=== PATIENT | female | born 1985 | race Caucasian/White ===

== ENCOUNTER 2018-01-02 13:24 | Day surgery (SDC) | payer OTHER ==
[~2018-01-02] VITALS: Ht 160 cm; Wt 55.1 kg
[~2018-01-02 13:24] MED LIST: ONDANSETRON HCL 4 MG/2 ML VIAL IV ONE; PRENCAP6 PO; PROP80CA PO; PROPOFOL 200 MG/20 ML AMP IV ONE; TOPI100 PO
[2018-01-02 14:00] VITALS: BP 148/96; PULSE 88; RESP 16; O2SAT 100
[2018-01-02] MEDS ORDERED: LORazepam 1 MG TAB SL SCH (14:45)
[2018-01-02] MEDS ORDERED: SODIUM CHLORID 0.9% 500 ML INJ 500 ML IV SCH (14:45)
[2018-01-02] MEDS ORDERED: METOPROLOL TARTRATE 25 MG TAB PO PRN (14:45)
[2018-01-02] MEDS ORDERED: SODIUM CHLORID 0.9% 500 ML IV PRN (14:45)
[2018-01-02] MEDS ORDERED: LACTATED RINGER'S 1000 ML IV PRN (14:45)
[2018-01-02] MEDS ORDERED: POVIDONE IODINE 5% (ANTISEPSIS KIT) 4 APPLICATIONS EACH NARE PRN (14:45)
[2018-01-02] MEDS ORDERED: CHLORHEXIDINE GLUCONATE 2 % 1 PACK (2 CLOTHS) TOPICAL PRN (14:45)
[2018-01-02 15:26] LABS: AUTOMATED NEUTROPHIL # 4.8 TH/MM3 (1.8-7.7); BASOPHIL # 0.2 TH/MM3 (0-0.2); BASOPHIL % 2.1 % (0.0-2.0); EOSINOPHIL % 9.4 % (0.0-4.0); HEMATOCRIT 37.9 % (35.0-46.0); HEMOGLOBIN 13.1 GM/DL (11.6-15.3); LYMPH % 32.6 % (9.0-44.0); LYMPHOCYTE # 3.3 TH/MM3 (1.0-4.8); MEAN CELL VOLUME 90.3 FL (80.0-100.0); MEAN CORPUSCULAR HEMOGLOBIN 31.3 PG (27.0-34.0); MEAN CORPUSCULAR HGB CONC 34.6 % (32.0-36.0); MEAN PLATELET VOLUME 10.3 FL (7.0-11.0); MONO % 8.5 % (0.0-8.0); MONOCYTE # 0.9 TH/MM3 (0-0.9); NEUT % 47.4 % (16.0-70.0); PLATELET COUNT 226 TH/MM3 (150-450); RED CELL DISTRIBUTION WIDTH 12.3 % (11.6-17.2); WHITE BLOOD COUNT 10.1 TH/MM3 (4.0-11.0)
[2018-01-02 15:37] LABS: INTERNATIONAL NORMALIZED RATIO 1.1 RATIO; PROTHROMBIN TIME - PATIENT 11.6 SEC (9.8-11.6)
[2018-01-02 15:51] LABS: BICARBONATE 22.3 MEQ/L (21.0-32.0); BLOOD UREA NITROGEN 20 MG/DL (7-18); CALCIUM 8.7 MG/DL (8.5-10.1); CHLORIDE 111 MEQ/L (98-107); CREATININE 0.75 MG/DL (0.50-1.00); GLOMERULAR FILTRATION RATE 89 ML/MIN (>89); GLUCOSE,RANDOM 75 MG/DL (74-106); SODIUM (NA) 141 MEQ/L (136-145)
[2018-01-02] MEDS ORDERED: MIDAZOLAM HCL 2 MG/2 ML VIAL ONE (16:00)
[2018-01-02] MEDS ORDERED: HEPARIN SODIUM - IV 10,000 UNITS/10 ML VIAL ONE (16:01)
[2018-01-02] MEDS ORDERED: TOPI200 PO (16:12)
[2018-01-02] MEDS ORDERED: PROP20TA3 PO (16:12)
--- NOTE | 2018-01-02 17:03 | CATHPROC ---
[facility] HIS Report Study Information Study Number Admission Scheduled Start Study Start [id number] Jan 02 2018 1:24PM 01/02/2018 Jan 02 2018 2:27PM [facility] Electrophysiology Study Admit Source Facility Department Other [facility] Physician and Clinical Staff Initial Dong [employer] Hand Gisela Peck RN Other Jazmin Holder,RT(R) TECH2 Other Anesthesia, HIDE SPLITTER Recorder Shahzad JACQUES, Christiano Killian,RT(R) Equipment Time Vault Attendant Description Size Mfg Part Number Used/Scraped [id number] 14:30 [employer] PACK, CCL CUSTOM * Used *[id number] 14:30 [employer] PACER [place], LIMB * 2530 *[id number] Used [id number] 14:30 [employer] BLANKET,WARM AIR CCL * Used *[id number] 16:09 [employer] CATHETER, JSN, QUAD FR 5 Used *[id number] 16:09 [employer] CAT[employer], JSN, QUAD FR 5 Used *[id number] 16:09 [employer] CATHE[employer], JSN, QUAD FR 5 Used *[id number] 16:09 [employer] CATHETER, JSN, QUAD FR 5 Used *[id number] 14:30 [employer] ELECTRODE KIT, HIRAL X SURFACE * Used *[id number] 16:10 [employer] SHEATH, EPS, FR5 FAST CATH FR 5 Used *[id number] 16:10 [employer] SHEATH, EPS, FR5 FAST CATH FR 5 Used *[id number] 16:10 [employer] SHEATH, EPS, FR5 FAST CATH FR 5 Used *[id number] 16:10 [employer] SHEATH, EPS, FR6 FAST CATH FR 6 Used *[id number] 16:10 [employer] SHEATH, EPS, FR8 FAST CATH FR 8 Used *[id number] 16:22 [facility] SHEATH, EPS, FR8 FAST CATH FR 8 Used *[id number] [facility] PAD, ELECTROSURGICAL 14:30 * [id number] *[id number] Used SURGICAL GROUNDING (BLUE) Labs Hgb (g/dl) Hct (%) WBC (l/cumm) Platelets (thousands) 11.60-17.00 35.00-51.00 4.00-11.00 150.00-450.00 15.0 37 4.2 226 Glucose (mg/dl) BUN (mg/dl) Creatinine (mg/dl) BUN:Creatinine (1:x) 74.00-106.00 7.00-18.00 0.50-1.30 10.00-20.00 75 20 0.8 25 Na (meq/l) K (meq/l) 136.00-145.00 3.50-5.10 141 3.6 INR (PTT:PT) 0.90-1.10 1.1 CPK-MB (ng/ML) 0.50-3.60 Not Drawn Medication Medication Total Dose (Bolus/Oral) Medication Total Dosage/Unit 1% XYLOCAINE 40 mL Medications (Bolus/Oral) Medication Time Given Dosage/Unit Administered By Reason 1% XYLOCAINE 01/02/2018 4:29:15 PM 20 mL Dong Jackson 20 mL 1% XYLOCAINE given by Dong Jackson in Left Groin via Subcutaneous. 1% XYLOCAINE 01/02/2018 4:32:08 PM 20 mL Dong Jackson 20 mL 1% XYLOCAINE given by Dong Jackson in Right Groin via Subcutaneous. Medication (Drip) Medication Time Given Dosage/Unit Concentration/Unit Diluent (ml) Solution ISUPREL 01/02/2018 4:44:08 PM 2 mcg/min 1 mg 250 NaCl .9 2 mcg/min ISUPREL given in lab by Dong Jackson via Peripheral IV. Pump/Drip Flow = 30 ml/hr using Na Cl .9 with a concentration of 1 mg in 250 ml. Initial Case Assessment Cardiovascular HR NIBP Chest Pain 78 139/88 0 Edema Present Skin color Skin None Normal Warm Dry Neurological State Oriented to time-place- Alert Moves all extremities person Final Case Assessment Cardiovascular HR Rhythm NIBP Chest Pain 92 sr 94/50 0 Edema Present Skin color Skin None Normal Warm Dry Circulatory - Right Pulses Dorsalis Pedis 1 Scale (0,1,2,3,4,d) Circulatory - Left Pulses Dorsalis Pedis 1 Scale (0,1,2,3,4,d) Circulatory - Lower Extremities Color Lower Right Color Lower Left Normal Normal Neurological State Lethargic Moves all extremities Respiration - General Respiration Rate SpO2 (%) O2 (lpm) (B/min) 16 100 6 Chronological Log Time Study Chronological Log 15:52:12 Patient arrived via Bed. 15:52:13 Patient Name, D.O.B, / Armband Verified By R.N. 15:52:15 Consent signed by the physician and the patient and verified by the [facility] staff. 15:52:17 Pre-op and post- op instructions given; patient acknowledges understanding of instructions. 15:52:18 Verbal Stimulation=2 Physical Stimulation=2 Airway=2 Respiration=2 TOTAL=8. (0=absent, 1=li mited, 2=present) 15:52:20 Anesthesia at bedside. Assumes care of patient. Bertram 15:53:46 History and physical on the chart or being dictated. 16:00:10 Patient has been NPO for More than 6Hrs. 16:01:53 Disposable Defibrillator Pads Placed On Patient. 16:05:25 A # 20 IV was noted in the Antecubital (right). Grade = 0 16:05:59 Yakelin Prominences Protected 16:07:50 Patient Warmer Placed on the Table. 16:11:10 Skin Breakdown- none reported 16:11:45 Bilateral groins prepped with 2% chlorhexidine, and draped after a 3 min. waiting time. 16:13:06 A # 20 IV was noted in the Antecubital (left). Grade = 0 16:13:52 Table restraints applied according to hospital policy Assessment: Initial Case, HR=78 BPM, FEZX=522/88 mmhg, Chest Pain=0, Edema=None, Color=Normal, Skin = 16:13:55 Warm, Dry Neurological: State=Alert, Ox3, REYES 16:14:42 MD paged 16:25:13 MD arrived. Time Out. Correct patient, procedure, procedure equipment, site and side verified with physicia n present. Time 16:28:55 concurred by MD, individual staff and HIDE SPLITTER. 16:28:59 Case Start 16:29:15 20 mL 1% XYLOCAINE given by Dong Jackson in Left Groin via Subcutaneous. 16:29:55 Vascular access was obtained in the Fem Vein (left). 16:30:14 Vascular access was obtained in the Fem Vein (left). 16:31:01 Vascular access was obtained in the Fem Vein (left). 16:31:26 A SHEATH, EPS, FR5 FAST CATH FR 5 was advanced into the Fem Vein (left) using the Modified Seldinger technique. 16:31:42 A SHEATH, EPS, FR5 FAST CATH FR 5 was advanced into the Fem Vein (left) using the Modified Seldinger technique. 16:31:51 A SHEATH, EPS, FR5 FAST CATH FR 5 was advanced into the Fem Vein (left) using the Modified Seldinger technique. 16:32:08 20 mL 1% XYLOCAINE given by Dong Jackson in Right Groin via Subcutaneous. 16:32:31 Vascular access was obtained in the Fem Vein (right). 16:32:36 A SHEATH, EPS, FR6 FAST CATH FR 6 was advanced into the Fem Vein (right) using the Modified Seldinger technique. A CATHETER, JSN, QUAD FR 5 was advanced vis Fem Vein (left) and placed in the RVA. Placement wa s visually 16:33:19 confirmed under fluoroscopy. A CATHETER, JSN, QUAD FR 5 was advanced vis Fem Vein (left) and placed in the HIS. Placement wa s visually 16:34:36 confirmed under fluoroscopy. A CATHETER, JSN, QUAD FR 5 was advanced vis Fem Vein (left) and placed in the HRA. Placement wa s visually 16:36:22 confirmed under fluoroscopy. A CATHETER, JSN, QUAD FR 5 was advanced vis Fem Vein (right) and placed in the CS. Placement wa s visually 16:37:24 confirmed under fluoroscopy. 16:38:38 Incremental Atrial Pacing in progress 2 mcg/min ISUPREL given in lab by Dong Jackson via Peripheral IV. Pump/Drip Flow = 30 ml/hr us ing NaCl .9 with a 16:44:08 concentration of 1 mg in 250 ml. 16:49:59 Incremental Atrial Pacing in progress 16:52:19 Isuprel off 16:55:18 EP Procedure was performed. 16:57:06 Catheter(s) removed without difficulty 16:57:22 Sheath(s) left in place, secured, 0.9nskvo connected and will be removed in Holding Area 16:57:43 DOCU called. Spoke to Eli. Aware of venous sheaths need to be pulled. 16:58:27 Bedside Report will be given. 16:58:51 Defibrillator and ground pads removed. Skin intact. Assessment: Final Case, HR=92 BPM, Rhythm=sr, NIBP=94/50 mmhg, Chest Pain=0, Edema=None, Color =Normal, Skin = Warm, Dry Right Pulses: Danielito Ped=1 Left Pulses: Danielito Ped=1 16:59:01 Lower Right Extremities: Color=Normal Lower Left Extremities: Color=Normal Neurological: State=Lethargic, REYES Respiration: Resp=16 B/min, ZaX9=898 %, O2=6 lpm 16:59:36 Sterile dressing applied to site 16:59:49 Reference ECG taken 16:59:51 Cine recording checked. 17:00:02 Case End 17:00:08 Patient moved to stretcher End Study - Contrast Media Used In Study Contrast Total Opened (mL) Total Used (mL) Total Wasted (mL) Unspecified 0 0 0 End Study - Maximum Contrast Load Max Contrast Load (mL) 312.5 End Study - Radiation Exposure Fluoro Time (minutes) 1.7 End Study - Patient Disposition Complications Transferred To Interventional Outcome No Telemetry Bed successful
--- NOTE | 2018-01-03 11:17 | EKG ---
Date Performed: 01/02/2018 Time Performed: 15:08:12 PTAGE: 32 years EKG: Sinus rhythm Normal ECG NO PREVIOUS TRACING DOCTOR: Felix Espinal Interpretating Date/Time 01/03/2018 11:13:45
== END 2018-01-02 19:49 | disposition home or self-care (01) ==
LOC: HDOC 13:24 → HDIC 13:25 → HDOC 19:49
PROVIDERS: ATTEND Internal Medicine Interventional Cardiology
DX: I47.1 Supraventricular tachycardia (principal); I48.91 Unspecified atrial fibrillation; R06.02 Shortness of breath; I34.0 Nonrheumatic mitral (valve) insufficiency
CPT/HCPCS: 80048; 84702; 85025; 85610; 85730; 86850; 86900; 86901; 93005; 93620; 93623; C1730; C1732; J1644; J2250; J2405; J3010; J7040

== ENCOUNTER 2018-02-05 07:26 | Day surgery (SDC) | payer OTHER ==
[~2018-02-05] VITALS: Ht 157.5 cm; Wt 51.0 kg
[2018-02-05] VITALS (11 sets, daily range): BP systolic 105–139; BP diastolic 82–101; PULSE 65–108; RESP 16–18; TEMP 97.6–98.6; O2SAT 100
[~2018-02-05 07:26] MED LIST changes: -ONDANSETRON HCL 4 MG/2 ML VIAL IV ONE; -PRENCAP6 PO; +PROP20TA3 PO; -PROP80CA PO; -PROPOFOL 200 MG/20 ML AMP IV ONE; -TOPI100 PO; +TOPI200 PO
[2018-02-05] MEDS ORDERED: ROCURONIUM INJ 50 MG/5 ML VIAL IV ONE (07:27)
[2018-02-05] MEDS ORDERED: PROPOFOL 200 MG/20 ML AMP OTHER ONE (07:27)
[2018-02-05] MEDS ORDERED: PHENYLEPH/NS 1000 MCG/10 ML SYR OTHER ONE (07:27)
[2018-02-05] MEDS ORDERED: ONDANSETRON HCL 4 MG/2 ML VIAL IV PUSH ONE (07:27)
[2018-02-05] MEDS ORDERED: APIX5TAB PO (08:04)
[2018-02-05 08:13] LABS: AUTOMATED NEUTROPHIL # 3.5 TH/MM3 (1.8-7.7); BASOPHIL # 0.2 TH/MM3 (0-0.2); BASOPHIL % 2.4 % (0.0-2.0); EOSINOPHIL # 1.3 TH/MM3 (0-0.4); EOSINOPHIL % 16.6 % (0.0-4.0); HEMATOCRIT 40.4 % (35.0-46.0); HEMOGLOBIN 13.4 GM/DL (11.6-15.3); LYMPH % 26.2 % (9.0-44.0); MEAN CELL VOLUME 92.3 FL (80.0-100.0); MEAN CORPUSCULAR HEMOGLOBIN 30.6 PG (27.0-34.0); MEAN CORPUSCULAR HGB CONC 33.2 % (32.0-36.0); MEAN PLATELET VOLUME 9.2 FL (7.0-11.0); MONO % 8.5 % (0.0-8.0); MONOCYTE # 0.7 TH/MM3 (0-0.9); NEUT % 46.3 % (16.0-70.0); PLATELET COUNT 240 TH/MM3 (150-450); RED BLOOD COUNT 4.38 MIL/MM3 (4.00-5.30); RED CELL DISTRIBUTION WIDTH 12.7 % (11.6-17.2); WHITE BLOOD COUNT 7.6 TH/MM3 (4.0-11.0)
[2018-02-05] MEDS ORDERED: LEVOFLOXACIN 500 MG PREMIX INJ 100 ML IV ONE (08:15)
[2018-02-05] MEDS ORDERED: LORazepam 1 MG TAB SL SCH (08:15)
[2018-02-05 08:22] LABS: INTERNATIONAL NORMALIZED RATIO 1.1 RATIO; PROTHROMBIN TIME - PATIENT 11.4 SEC (9.8-11.6)
[2018-02-05 08:37] LABS: BICARBONATE 23.9 MEQ/L (21.0-32.0); BLOOD UREA NITROGEN 17 MG/DL (7-18); CALCIUM 8.6 MG/DL (8.5-10.1); CHLORIDE 112 MEQ/L (98-107); CREATININE 0.86 MG/DL (0.50-1.00); GLOMERULAR FILTRATION RATE 76 ML/MIN (>89); GLUCOSE,RANDOM 85 MG/DL (74-106); SODIUM (NA) 142 MEQ/L (136-145)
[2018-02-05] MEDS: SODIUM CHLORID 0.9% 500 ML INJ 500 ML IV SCH (08:39)
[2018-02-05] MEDS ORDERED: POVIDONE IODINE 5% (ANTISEPSIS KIT) 4 APPLICATIONS EACH NARE PRN (08:45)
[2018-02-05] MEDS ORDERED: SODIUM CHLORID 0.9% 500 ML IV PRN (08:45)
[2018-02-05] MEDS ORDERED: METOPROLOL TARTRATE 25 MG TAB PO PRN (08:45)
[2018-02-05] MEDS ORDERED: CHLORHEXIDINE GLUCONATE 2 % 1 PACK (2 CLOTHS) TOPICAL PRN (08:45)
[2018-02-05] MEDS ORDERED: LACTATED RINGER'S 1000 ML IV PRN (08:45)
[2018-02-05] MEDS ORDERED: HEPARIN-D5W 25,000 U/250 ML 250 ML ONE (09:02)
[2018-02-05] MEDS ORDERED: LIDOCAINE HCL 1% PF 30 ML VIAL ONE (09:26)
--- NOTE | 2018-02-05 11:41 | CATHPROC ---
Patient Name: RALPH QUINTANILLA Study #: [id number] Initial MD: Dong Jackson Date of : 1985 Study Date: 02/05/2018 Cardiac Catheterization Report 02/05/2018 11:46:36 AM Financial #: [id number] Patient Name: RALPH QUINTANILLA Study #: [id number] Initial MD: Dong Jackson Date of : 1985 Study Date: 02/05/2018 Entire Case Report Patient Information Patient Name RALPH QUINTANILLA Date of 1985 Age 32 years Financial # [id number] Gender F AlternateID Lab Number 2 Room Number DC05 Height (in) 62.0 Height (cm) 157.5 BSA 1.91 Weight (lbs) 198.0 Weight (kg) 90.0 Patient Address/Phone Number Home Address [facility] Home Phone Number [address] [facility] [address] Study Information Study Number Admission Scheduled Start Study Start [id number] Feb 05 2018 7:26AM 02/05/2018 Feb 05 2018 8:35AM [place] Service Electrophysiology Study Admit Source Facility Department Other [facility] Physician and Clinical Staff Initial Dong Gamez Offset Pressman Iraida Humphrey RCIS Offset Pressman Jazmin Holder,RT(R) TECH2 Other Anesthesia, CONTROL SYSTEMS ENGINEER Recorder Gisela Peck RN Recorder Sherrell Tang RN Scrub Christiano DavisRT(R) 02/05/2018 11:46:36 AM Financial #: [id number] Patient Name: RALPH QUINTANILLA Study #: [id number] Initial MD: Dong Jackson Date of : 1985 Study Date: 02/05/2018 Procedures Performed Procedure Location (Site) Vessel Name Ablation Procedure CRYO Ablation LIPV LIPV CRYO Ablation LSPV LSPV CRYO Ablation RIPV RIPV CRYO Ablation RSPV RSPV ICE CATHETER INSERT Fem Vein (left) Femoral Vein Venogram LIPV LIPV Venogram LSPV LSPV Venogram RIPV RIPV Venogram RSPV RSPV Equipment Time Co Founder & Ceo Description Size Mfg Part Number Used/Scraped COPILOT VALVE, BLEEDBACK [id number] 08:37 [employer] Used CONTROL *[id number] TRANSDUCER, TRUWAVE [id number] 08:37 MENDEZ TABOR * Used W/STOCKCOCK *[id number] NEEDLE, TRANSSEPTAL NRG 98 SZU-T-[id number]-98-C1 08:37 [facility] Used C1 *[id number] NEEDLE, TRANSSEPTAL NRG 98 YOD-N-OE-98-C1 09:55 [facility] Used C1 *[id number] [employer]/ EP [id number] 09:55 KIT, TRANSDUCER / AFIB Used PACER *[id number] 09:55 [facility] CATHETER, JSN, QUAD BUNDLE FR 5 *[id number]- Used BUNDLE [id number] 09:55 BUND[facility] CATHETER, JSN, QUAD BUNDLE FR 5 *1910939- Used BUNDLE 22895-PUXSMT SET, COOL POINT TUBING 09:55 BUN[facility] *[id number]- Used BUNDLE BUNDLE COVER, TRANSDUCER CABLE 612113 08:37 [employer] Used ACUNAV *[id number] 08:37 CONMED LEADWIRE, DEFIBRILLATION PAD 2001M-PC Used SHEATH SET, FR12 CHECK-JAVIER RCF-12.0-38-J 10:12 COOK/PACER FR12 Used 13CM *[id number] 08:37 CORDIS/PACER SHEATH, FR10 BEHZAD 11CM FR 10 Used *8669416 09:55 MEDLINE PACER ADAMS, LIMB * 2530 *1475970 Used PSI-4F-11- 08:37 [employer] MEDICAL SHEATH, FR4.5 PRELUDE 11CM FR 4.5 Used [id number] 08:37 NAMIC MANIFOLD, 4 PORT * Used *[id number] 02/05/2018 11:46:36 AM Financial #: [id number] Patient Name: RALPH QUINTANILLA Study #: [id number] Initial MD: Dong Jackson Date of : 1985 Study Date: 02/05/2018 [id number] 08:37 NAMIC TUBING, HIGH PRESSURE 20" 20" Used *[id number] [id number] 08:37 NAMIC TUBING, HIGH PRESSURE 48" 48" Used *1645347 [id number] 09:55 NAMIC TUBING, HIGH PRESSURE 48" 48" Used *[id number] 60141514 09:55 NAMIC TUBING, HIGH PRESSURE 48" 48" Used *3528934 10:18 [employer]COMED OMNIPAQUE, 300 MG, 150ML 150ML [id number] Used [id number] 09:55 [employer] MEDICAL BLANKET,WARM AIR CCL * Used *[id number] 881247 08:37 [facility] MEDICAL CATHETER, JSN, QUAD FR 5 Used *3986465 680201 08:37 [facility] MEDICAL CATHETER, JSN, QUAD FR 5 Used *2334418 OJ6589 09:55 [facility] MEDICAL ELECTRODE KIT, HIRAL X SURFACE * Used *3986069 809818 08:37 [facility] SHEATH, EPS, FR6 FAST CATH FR 6 Used *[id number] 017193 09:55 [facility] MEDICAL SHEATH, EPS, FR6 FAST CATH FR 6 Used *7881010 09:55 [facility] MEDICAL SHEATH, EPS, FR7 FAST CATH FR 7 [id number] Used 08:37 [facility] MEDICAL SHEATH, EPS, FR7 FAST CATH FR 7 [id number] Used 854131 08:37 [facility] MEDICAL SHEATH, EPS, FR8 FAST CATH FR 8 Used *9262616 586290 09:55 [facility] MED[facility] SHEATH, EPS, FR8 FAST CATH FR 8 Used *[id number] SHEATH, FR8.5 STEERABLE SM 09:56 [facility] MEDICAL 71CM 634194 Used 71CM CATHETER, ACUNAV FR10 ICE [id number] 09:52 ODALYS FR 10 Used (ODALYS) *5974587 [facility] P[facility], ELECTROSURGICAL 09:55 * [id number] *[id number] Used SURGICAL GROUNDING (BLUE) BALLOON, ARCTIC FRONT [id number] 10:18 [employer] Used ADVANCE 28MM *[id number] CATHETER, ACHEIVE MAPPING 2ACH20 10:13 [employer] 20MM Used 20MM *[id number] Equipment Model, Serial, Lot Number and Expiration Data Description Model Number Serial Number Lot Number Expiration Date SHEATH SET, FR12 CHECK-JAVIER [id number] 06-18-2020 13CM CATHETER, ACHEIVE MAPPING [id number] 10-03-2019 20MM Insurance Information Insurance Payor Private Health Insurance Third Republican Third Republican Number C - POS [facility] 02/05/2018 11:46:36 AM Financial #: [id number] Patient Name: RALPH QUINTANILLA Study #: [id number] Initial MD: Dong Jackson Date of : 1985 Study Date: 02/05/2018 History: Allergies Allergy Reaction propoxyphene VOMIT acetaminophen VOMIT meperidine hydrocodone Nausea/Vomiting Labs Hgb (g/dl) Hct (%) RBC (MIL/MM3) WBC (l/cumm) Platelets (thousands) 11.60-17.00 35.00-51.00 4.00-5.90 4.00-11.00 150.00-450.00 13.0 40 4.3 7.6 240 Glucose (mg/dl) Creatinine (mg/dl) 74.00-106.00 0.50-1.30 85 0.8 Na (meq/l) 136.00-145.00 142 Medication Medication Total Dose (Bolus/Oral) Medication Total Dosage/Unit 1% XYLOCAINE 40 mL HEPARIN 8000 units PROTAMINE 40 mg Medications (Bolus/Oral) Medication Time Given Dosage/Unit Administered By Reason 1% XYLOCAINE 02/05/2018 9:44:43 AM 20 mL Dong Jackson 20 mL 1% XYLOCAINE given in lab by Dong Jackson in Left Groin via Subcutaneous. Ordered by Matthew Jackson 1% XYLOCAINE 02/05/2018 9:47:49 AM 20 mL Dong Jackson 20 mL 1% XYLOCAINE given in lab by Dong Jackson in Right Groin via Subcutaneous. Ordered by Vini Jackson. HEPARIN 02/05/2018 9:55:07 AM 8000 units Anesthesia, CONTROL SYSTEMS ENGINEER As per physicians garett bal order 8000 units HEPARIN given in lab by Anesthesia, CONTROL SYSTEMS ENGINEER via Peripheral IV. Ordered by Dong Jackson. Reas on: As per physicians verbal order. PROTAMINE 02/05/2018 11:40:40 AM 40 mg Anesthesia, CONTROL SYSTEMS ENGINEER As per physicians verb al order 40 mg PROTAMINE given in lab by Anesthesia, CONTROL SYSTEMS ENGINEER via Peripheral IV. Ordered by Dong Jackson. Reason: As per physicians verbal order. 02/05/2018 11:46:36 AM Financial #: [id number] 5 of 11 Patient Name: RALPH QUINTANILLA Study #: [id number] Initial MD: Dong Jackson Date of : 1985 Study Date: 02/05/2018 Medication (Drip) Medication Time Given Dosage/Unit Concentration/Unit Diluent (ml) Solution ISUPREL 02/05/2018 11:16:35 AM 20 mcg/min 1 mg 250 NaCl .9 20 mcg/min ISUPREL given in lab by Anesthesia, CONTROL SYSTEMS ENGINEER via Peripheral IV. Pump/Drip Flow = 300 ml/hr usi ng NaCl .9 with a concentration of 1 mg in 250 ml. Ordered by Dong Jackson. Reason: As per physicians verbal order. Initial Case Assessment Cardiovascular HR Rhythm NIBP 72 sr 139/84 Edema Present Skin color Skin None Normal Warm Dry Circulatory - Right Pulses Dorsalis Pedis 1 Scale (0,1,2,3,4,d) Circulatory - Left Pulses Dorsalis Pedis 1 Scale (0,1,2,3,4,d) Circulatory - Lower Extremities Color Lower Right Color Lower Left Normal Normal Neurological State Oriented to time-place- Alert Moves all extremities person Respiration - General Respiration Rate SpO2 (%) (B/min) 18 100 02/05/2018 11:46:36 AM Financial #: [id number] 6 of Patient Name: RALPH QUINTANILLA Study #: [id number] Initial MD: Dong Jackson Date of : 1985 Study Date: 02/05/2018 Final Case Assessment Cardiovascular HR Rhythm NIBP Chest Pain 117 st 169/81 0 Edema Present Skin color Skin None Normal Warm Dry Circulatory - Right Pulses Dorsalis Pedis 1 Scale (0,1,2,3,4,d) Circulatory - Left Pulses Dorsalis Pedis 1 Scale (0,1,2,3,4,d) Circulatory - Lower Extremities Color Lower Right Color Lower Left Normal Normal Neurological State Oriented to time-place- Alert Moves all extremities person Respiration - General Respiration Rate SpO2 (%) O2 (lpm) (B/min) 16 100 4 Chronological Log Time Study Chronological Log 8:57:03 Patient arrived via Bed. 8:57:05 Patient Name, D.O.B, / Armband Verified By R.N. 8:57:05 Consent signed by the physician and the patient and verified by the [facility] staff. 8:57:06 Pre-op and post- op instructions given; patient acknowledges understanding of instructions. 8:57:07 Verbal Stimulation=2 Physical Stimulation=2 Airway=2 Respiration=2 TOTAL=8. (0=absent, 1=li mited, 2=present) 8:57:08 Anesthesia at bedside. Assumes care of patient. 8:57:23 Patient has been NPO for More than 6Hrs. 8:57:24 Skin Breakdown- none per pt 8:57:30 Patient Warmer Placed on the Table. 02/05/2018 11:46:36 AM Financial #: [id number] Patient Name: RALPH QUINTANILLA Study #: [id number] Initial MD: Dong Jackson Date of : 1985 Study Date: 02/05/2018 8:57:31 Disposable Defibrillator Pads Placed On Patient. 8:57:32 Yakelin Prominences Protected 8:57:33 A # 20 IV was noted in the Antecubital (right). Grade = 0 0.9ns kvo 8:57:35 A # 20 IV was noted in the Antecubital (left). Grade = 0 0.9ns kvo 8:57:56 History and physical on the chart. 9:07:44 Table restraints applied according to hospital policy Assessment: Initial Case, HR=72 BPM, Rhythm=sr, KBVG=660/84 mmhg, Edema=None, Color=Normal, Ski n = Warm, Dry Right Pulses: Danielito Ped=1 Left Pulses: Danielito Ped=1 9:10:22 Lower Right Extremities: Color=Normal Lower Left Extremities: Color=Normal Neurological: State=Alert, Ox3, REYES Respiration: Resp=18 B/min, OfG1=729 % 9:16:27 Bilateral groins prepped with 2% chlorhexidine. 9:19:20 A sterile drape was applied 9:21:11 Anesthesiologist at bedside for intubation 9:24:47 Reference ECG taken 9:25:17 MD paged 9:26:21 MD responded 9:33:28 Pressure channel 1 zeroed. 9:36:14 MD arrived. Time Out. Correct patient, procedure, procedure equipment, site and side verified with physicia n present. Time 9:40:57 concurred by MD, individual staff and CONTROL SYSTEMS ENGINEER. Time Out #2 - Consents verified, patient in correct position, all results are labled and displa yed, safety precautions 9:41:36 taken, antibiotics administered. Time out concurred by MD, individual staff and CONTROL SYSTEMS ENGINEER in procedu re 9:41:38 Case Start 9:41:58 PATY in progress. 9:43:07 PATY completed. EPS commencing. 9:44:43 20 mL 1% XYLOCAINE given in lab by Dong Jackson in Left Groin via Subcutaneous. Ordered by Dong Jackson. 9:45:01 Vascular access was obtained in the Fem Vein (left). 9:45:55 Vascular access was obtained in the Fem Vein (left). 9:46:08 Vascular access was obtained in the Fem Vein (left). 9:46:34 Vascular access was obtained in the Fem Art (left). 9:46:36 A SHEATH, FR4.5 PRELUDE 11CM FR 4.5 was advanced into the Fem Art (left) using the Modified Seldinger technique. 9:47:02 A SHEATH, EPS, FR7 FAST CATH FR 7 was advanced into the Fem Vein (left) using the Modified Seldinger technique. 9:47:10 A SHEATH, EPS, FR6 FAST CATH FR 6 was advanced into the Fem Vein (left) using the Modified Seldinger technique. 9:47:19 A SHEATH, FR10 BEHZAD 11CM FR 10 was advanced into the Fem Vein (left) using the Modified S eldinger technique. 9:47:49 20 mL 1% XYLOCAINE given in lab by Dong Jackson in Right Groin via Subcutaneous. Ordered b Dong Reveles. 9:48:36 Vascular access was obtained in the Fem Vein (right). 02/05/2018 11:46:36 AM Financial #: [id number] Patient Name: RALPH QUINTANILLA Study #: [id number] Initial MD: Dong Jackson Date of : 1985 Study Date: 02/05/2018 9:48:51 A SHEATH, EPS, FR8 FAST CATH FR 8 was advanced into the Fem Vein (right) using the Modified Seldinger technique. A CATHETER, JSN, QUAD FR 5 was advanced vis Fem Vein (left) and placed in the CS. Placement was visually 9:49:32 confirmed under fluoroscopy. A CATHETER, JSN, QUAD FR 5 was advanced vis Fem Vein (left) and placed in the HIS. Placement wa s visually 9:50:10 confirmed under fluoroscopy. 9:51:56 CATHETER, ACUNAV FR10 ICE (Edutor) FR 10 Was Positioned in HRA via 10fr sheath. A SHEATH, FR8.5 STEERABLE SM 71CM 71CM was exchanged in the Fem Vein (right). This was necessar y in order for 9:53:21 catheter support. 9:54:54 A eps was advanced to the right atrium and passed through the septal wall to the left atriu m. 8000 units HEPARIN given in lab by Anesthesia, CONTROL SYSTEMS ENGINEER via Peripheral IV. Ordered by Dong Jackson . Reason: As per 9:55:07 physicians verbal order. 10:02:38 Activated Clotting Time Drawn A CATHETER, ACHEIVE MAPPING 20MM 20MM was advanced vis Fem Vein (right) and placed in the LA. P lacement was 10:09:57 visually confirmed under fluoroscopy. 10:11:02 Dilating with check-javier dilator. 10:11:29 0.32 wire in 10:11:34 A BALLOON, ARCTIC FRONT ADVANCE 28MM was placed into the LA. 10:12:10 0.32 wire out. 10:16:25 ACT (Normal Range 90-180) = 398 10:17:03 The LSPV was manually injected with 10 cc's of contrast. OMNIPAQUE, 300 MG, 150ML 150ML use d. 10:17:04 Cryo Ablation of the LSPV with a BALLOON, ARCTIC FRONT ADVANCE 28MM. 1st 10:19:59 Cryo Ablation of the LSPV with a BALLOON, ARCTIC FRONT ADVANCE 28MM. 2nd 10:31:00 The LIPV was manually injected with 10 cc's of contrast. OMNIPAQUE, 300 MG, 150ML 150ML use d. 10:31:18 Cryo Ablation of the LIPV with a BALLOON, ARCTIC FRONT ADVANCE 28MM. 1st 10:41:05 The RIPV was manually injected with 10 cc's of contrast. OMNIPAQUE, 300 MG, 150ML 150ML use d. 10:41:38 Cryo Ablation of the RIPV with a BALLOON, ARCTIC FRONT ADVANCE 28MM.1st 10:47:51 Cryo Ablation of the RIPV with a BALLOON, ARCTIC FRONT ADVANCE 28MM. 2nd 10:49:49 Mapping in progress. 10:51:41 Activated Clotting Time Drawn 10:59:09 The RSPV was manually injected with 10 cc's of contrast. OMNIPAQUE, 300 MG, 150ML 150ML use d. 10:59:31 Cryo Ablation of the RSPV with a BALLOON, ARCTIC FRONT ADVANCE 28MM. 1st 11:00:12 ACT (Normal Range 90-180) = 367 11:03:45 Pacing in RSPV 11:06:00 Pacing off 11:07:19 Pacing in RSPV 11:09:44 Pacing off 11:10:20 Pacing in RSPV 11:11:41 Cryo Ablation of the RSPV with a BALLOON, ARCTIC FRONT ADVANCE 28MM. 2nd 11:15:50 BL out. MM in. 20 mcg/min ISUPREL given in lab by Anesthesia, CONTROL SYSTEMS ENGINEER via Peripheral IV. Pump/Drip Flow = 300 ml/ hr using NaCl .9 11:16:35 with a concentration of 1 mg in 250 ml. Ordered by Dong Jackson. Reason: As per physicians garett bal order. 02/05/2018 11:46:36 AM Financial #: [id number] Patient Name: RALPH QUINTANILLA Study #: [id number] Initial MD: Dong Jackson Date of : 1985 Study Date: 02/05/2018 11:26:58 Isuprel off 11:29:38 Ablation complete. Cryo Catheter was removed 11:30:22 All catheter(s) removed without difficulty A SHEATH SET, FR12 CHECK-JAVIER 13CM FR12 was exchanged in the Fem Vein (right). This was necessa ry in order to 11:30:47 minimize site leakage. 11:31:44 PACU called. Spoke to Anjali 11:32:36 Bedside Report will be given. 11:32:40 Ablation procedure performed: AFIB. 11:32:47 EP Procedure was performed. 11:35:04 Sheath(s) left in place, secured, 0.9ns kvo connected and will be removed in Holding Area 11:36:20 Sterile dressing applied to site 11:38:06 Cine recording checked. Assessment: Final Case, BE=014 BPM, Rhythm=st, JTHH=400/81 mmhg, Chest Pain=0, Edema=None, Col or=Normal, Skin = Warm, Dry Right Pulses: Danielito Ped=1 Left Pulses: Danielito Ped=1 11:39:40 Lower Right Extremities: Color=Normal Lower Left Extremities: Color=Normal Neurological: State=Alert, Ox3, REYES Respiration: Resp=16 B/min, HdR9=630 %, O2=4 lpm 11:40:10 No case complications noted. 11:40:16 Case End 40 mg PROTAMINE given in lab by Anesthesia, CONTROL SYSTEMS ENGINEER via Peripheral IV. Ordered by Dong Jackson. Reason: As per 11:40:40 physicians verbal order. 11:41:42 Defibrillator and ground pads removed. Skin intact. 11:43:16 Activated Clotting Time Drawn 11:45:56 ACT (Normal Range 90-180) = 133 11:48:15 Patient moved to stretcher End Study - Maximum Contrast Load Max Contrast Load (mL) 562.5 End Study - Radiation Exposure Fluoro Time (minutes) 12.8 02/05/2018 11:46:36 AM Financial #: [id number] Patient Name: RALPH QUINTANILLA Study #: [id number] Initial MD: Dong Jackson Date of : 1985 Study Date: 02/05/2018 End Study - Patient Disposition Complications Transferred To Interventional Outcome No Telemetry Bed successful 02/05/2018 11:46:36 AM Financial #: [id number]
[2018-02-05] MEDS ORDERED: DO NOT ADM ANY ANTICOAGULANT DRUGS PRN (11:58)
[2018-02-05] MEDS ORDERED: ROCURONIUM INJ 50 MG/5 ML SYRINGE IV PUSH ONE (12:00)
[2018-02-05] MEDS ORDERED: PROPOFOL 200 MG/20 ML AMP IV ONE (12:00)
[2018-02-05] MEDS ORDERED: GLYCOPYRROLATE 1 MG/5 ML SYRINGE IV PUSH ONE (12:00)
[2018-02-05] MEDS ORDERED: NEOSTIGMINE 5 MG/5 ML SYRINGE IV PUSH ONE (12:00)
[2018-02-05] MEDS ORDERED: ePHEDrine/NS 25 MG/5 ML SYRINGE IV ONE (12:00)
[2018-02-05] MEDS ORDERED: LIDOCAINE HCL 1% PF 5 ML SYRINGE OTHER ONE (12:00)
[2018-02-05] MEDS ORDERED: PHENYLEPH/NS 1000 MCG/10 ML SYR IV ONE (12:00)
[2018-02-05] MEDS ORDERED: ONDANSETRON HCL 4 MG/2 ML VIAL IV ONE (12:00)
[2018-02-05] MEDS ORDERED: DEXAMETHASONE SOD PHOS 4 MG/ML VIAL IV ONE (12:00)
[2018-02-05] MEDS ORDERED: HEPARIN-NS/PF FLUSH BAG 2,000 ML IV FLUSH ONE (12:06)
[2018-02-05] MEDS ORDERED: MIDAZOLAM HCL 2 MG/2 ML VIAL ONE (12:30)
--- NOTE | 2018-02-05 12:37 | PD.CARD ---
Atrial Fibrillation Cryo Study PROCEDURE DATE: Feb 05, 2018 PROCEDURE PERFORMED Electrophysiology study, CS cannulation, 3-D mapping, transeptal approach, right and left heart catheterization, cryoablation of atrial fibrillation, pulmonary vein isolation, posterior ablation, anterior ablation, repeat electrophysiology study on Isuprel infusion, intracardiac echo. Very complex case. INDICATIONS FOR PROCEDURE Ms. Chang is a 32-year-old female with atrial fibrillation, very symptomatic, on anticoagulation, referred for electrophysiology study and ablation. The risks, the nature and the benefit of the procedure are clearly stated to her. The risks include pneumothorax, cardiac perforation, stroke, need for open heart surgery and even . The patient understood and agreed to proceed. PROCEDURE As written informed consent was obtained prior to esophageal echo, the patient was kept on the table where she was prepped and draped in the usual sterile fashion. Conscious sedation was initiated and throughout the procedure by the anesthesiologist. Once sedation was verified, the right and left inguinal area was anesthetized with 2% Xylocaine. Using modified Seldinger technique, the left femoral vein was cannulated on three occasions and three guidewires were advanced over the wire, one 6, one 7, and one 10-Martiniquais Hemaquet were advanced. Then the left femoral artery was done on one occasion, one guidewire was advanced over the wire. A 4-Martiniquais Hemaquet was advanced. Then the right femoral vein was cannulated on one occasion and one guidewire was advanced over the wire. An 8-Martiniquais Hemaquet was advanced. Then under fluoroscopic guidance through the 6 and 7-Martiniquais Hemaquet, two 5- Martiniquais Jacquelyn curved quadripolar electrophysiology catheters were advanced and positioned on the His as well as coronary sinus. The patient was in sinus rhythm. Basic interval was measured. They were all within normal limits. Then through the 10-Martiniquais Hemaquet, a [employer]on AcuNav intracardiac echo catheter was advanced and placed at the right atrium. Multiple views were obtained. There was no pericardial effusion. Pulmonary vein was seen. The atrial septum was visualized. Then the 8-Martiniquais Hemaquet in the right femoral vein was exchanged for an Agilis transseptal sheath that was placed all the way to the superior vena cava. Through this sheath a Minier needle was advanced. Then the sheath, the dilator and the needle were pulled back progressively until foci engaged. Once the needle was advanced, RF was delivered for 2 seconds. I was able to cross into the left atrium. Once the needle was crossed, the dilator was advanced. Once the dilator was crossed, the sheath was advanced. Once the sheath crossed , the dilator and needle were removed. An intracardiac echo showed the sheath in good position. The patient already received 8,000 units of heparin. The goal is to get an ACT around 360 during the ablation. using Well[employer] 3 D mapping system, a 3D configuration of the left atrium was obtained. Then at this point I decided to proceed with cryoablation. Through the sheath a 0.035 wire was advanced. I did exchange the Agilis sheath for a Jumblets flex sheath. I decided to use a 28mm balloon. The balloon was advanced over the Acheive circumferential catheter. First I did engage the left superior vein. The balloon was inflated, complete occlusion obtained. CryoEnergy was delivered for 3 and 2 minutes. Temperature reached -52. Then I did engage the left inferior vein, occlusion obtained. Venography showed complete occlusion and CryoEnergy was delivered for 3 and 3 minutes. Temperature was around -46. Then the right inferior was engaged, complete occlusion obtained. Temperature reach -55 for 2.5 and 2.5 minutes. Then the right superior was engaged. Before CryoEnergy of the right veins, the His catheter was placed at the left and the right subclavian. Phrenic nerve pacing was performed. There was diaphragmatic stimulation. That is going to be used for phrenic nerve monitoring during cryoablation. I did cryoablate the right superior vein. There was no loss of phrenic nerve movement, diaphragmatic movement. Phrenic nerve was intact. The temperature dropped to -54 for 3 and 3 minutes. At that point I removed the balloon. The circumferential catheter was advanced into the veins. Pacing from the vein showed no conduction to the atrium. Pacing from the atrium showed no conduction to the veins. The patient at this point received Isuprel infusion for around over 10 minutes at 20mcg. No tachyarrhythmia was induced, no conduction resumed. Post-Isuprel no conduction resumed either. At that point the procedure was complete. All catheters were removed, the transeptal sheath was exchanged for a 12-Martiniquais Hemaquet. Intracardiac echo showed pericardial effusion, still good flow in the pulmonary vein. No incident reported. The patient tolerated the procedure. Blood loss minimal. 1. Electrocardiogram: At baseline the patient was in sinus. Postprocedure the patient in sinus. 2. Basic Interval: Base cycle length was around 840 milliseconds. 3. Tachyarrhythmia: Atrial fibrillation was mapped and ablated. Ablation was successful. CONCLUSION Successful electrophysiology study, mapping and cryoablation of atrial fibrillation, pulmonary vein isolation, posterior and anterior wall ablation, repeat electrophysiology study on Isuprel infusion. COMMENT AND RECOMMENDATIONS The patient is going to be transferred to the telemetry unit, will be observed, and when stable can be discharged home. Dong Jackson MD Feb 05, 2018 12:37
[2018-02-05] MEDS ORDERED: LIDOCAINE HCL 1% 50 ML VIAL INFIL PRN (12:45)
[2018-02-05] MEDS ORDERED: SODIUM CHLOR 0.9% 250 ML INJ 250 ML IV PRN (12:45)
[2018-02-05] MEDS ORDERED: ONDANSETRON HCL 4 MG/2 ML VIAL IV PUSH PRN (12:45)
[2018-02-05] MEDS ORDERED: BACITRACIN OINT 0.9 GM PKT TOP ONE (12:45)
[2018-02-05] MEDS ORDERED: ATROPINE SULFATE 1 MG/ML VIAL IV PUSH PRN (12:45)
[2018-02-05] MEDS ORDERED: LORazepam 2 MG/ML VIAL IV PUSH PRN (12:45)
[2018-02-05] MEDS: APIXABAN 5 MG TABLET PO SCH (20:17)
[2018-02-05] MEDS: PROPRANOLOL HCL 20 MG TAB PO SCH (20:17)
[2018-02-05] MEDS ORDERED: TOPIRAMATE 200 MG TAB PO SCH (21:00)
[2018-02-05] MEDS: traMADol HCL 50 MG TAB PO PRN (21:30)
[2018-02-05] MEDS ORDERED: TEMAZEPAM 15 MG CAP PO SCH (23:30)
[2018-02-06] VITALS (12 sets, daily range): BP systolic 110–115; BP diastolic 82–91; PULSE 92–100; RESP 16–20; TEMP 97.4–98.6; O2SAT 100
[2018-02-06] MEDS: SODIUM CHLORID 0.9% 500 ML INJ 500 ML IV SCH (01:40)
[2018-02-06 06:59] LABS: INTERNATIONAL NORMALIZED RATIO 1.1 RATIO; PROTHROMBIN TIME - PATIENT 11.6 SEC (9.8-11.6)
[2018-02-06] MEDS: APIXABAN 5 MG TABLET PO SCH (08:06)
[2018-02-06] MEDS: PROPRANOLOL HCL 20 MG TAB PO SCH (08:06)
[2018-02-06] MEDS: traMADol HCL 50 MG TAB PO PRN (08:06)
--- NOTE | 2018-02-06 08:19 | PD.CARD.PN ---
Subjective Subjective Remarks Feels okay Objective Medications Current Medications Medications (Trade) Dose Ordered Sig/Fela Route Start Time Stop Time Status Last Admin Sodium Chloride 500 ml @ 30 mls/hr [id number] IV 02/05/18 09:00 02/05/18 08:39 (Ativan) 1 mg ACCOUNT AUDITOR SL 02/05/18 08:15 02/08/18 08:14 Lactated Ringer's 1,000 ml @ 30 mls/hr Q24H PRN IV 02/05/18 08:45 02/08/18 08:44 Sodium Chloride 500 ml @ 30 mls/hr [id number] PRN IV 02/05/18 08:45 02/08/18 08:44 (Lopressor) 25 mg ACCOUNT AUDITOR PRN PO 02/05/18 08:45 02/08/18 08:44 (Betadine 5% Antisepsis Kit) 1 applic ACCOUNT AUDITOR PRN EACH NARE 02/05/18 08:45 02/08/18 08:44 (Chlorhexidine 2% Cloth) 3 pack ACCOUNT AUDITOR PRN TOPICAL 02/05/18 08:45 02/08/18 08:44 (Ativan Inj) 0.5 mg UNSCH PRN IV PUSH 02/05/18 12:45 02/06/18 12:44 (Atropine Inj) 0.5 mg UNSCH PRN IV PUSH 02/05/18 12:45 Sodium Chloride 250 ml @ 500 mls/hr ONCE PRN IV 02/05/18 12:45 02/06/18 12:44 (Zofran Inj) 4 mg Q4H PRN IV PUSH 02/05/18 12:45 (Xylocaine 1% Inj (50 ml)) 10 ml UNSCH PRN INFIL 02/05/18 12:45 02/06/18 12:44 (Eliquis) 5 mg BID PO 02/05/18 21:00 02/06/18 08:06 (Inderal) 20 mg Q12HR PO 02/05/18 21:00 02/06/18 08:06 (Topamax) 200 mg HS PO 02/05/18 21:00 02/05/18 21:31 (Ultram) 50 mg Q8H PRN PO 02/05/18 12:45 02/06/18 08:06 Miscellaneous Information ALL NURSING DEPARTME... UNSCH PRN .XX 02/05/18 11:58 02/06/18 11:57 Vital Signs / I&O Vital Signs Date Time Temp Pulse Resp B/P (MAP) Pulse Ox O2 Delivery O2 Flow Rate FiO2 02/06/18 05:00 94 02/06/18 04:25 Room Air 02/06/18 04:20 97.8 93 16 110/82 (91) 100 02/06/18 04:08 93 02/06/18 03:00 100 02/06/18 02:00 94 02/06/18 01:00 96 02/06/18 00:18 97.4 97 16 115/82 (93) 100 02/06/18 00:15 98 Room Air 02/06/18 00:07 99 02/05/18 23:00 102 02/05/18 22:00 104 02/05/18 21:00 102 02/05/18 20:12 98.6 101 16 107/82 (90) 100 02/05/18 20:06 103 02/05/18 20:00 98.6 100 16 107/82 (90) 100 02/05/18 20:00 100 Nasal Cannula 2.00 02/05/18 19:00 108 02/05/18 17:31 105 02/05/18 16:21 101 02/05/18 15:05 97.6 100 18 105/83 (90) 100 02/05/18 15:05 104 02/05/18 15:05 99 Nasal Cannula 2.00 02/05/18 15:00 98.4 97 16 122/85 (97) 100 Nasal Cannula 2 02/05/18 14:45 93 15 109/72 (84) 97 Nasal Cannula 2 02/05/18 14:30 98 15 93/63 (73) 97 Nasal Cannula 2 02/05/18 14:15 113 16 108/57 (74) 100 Nasal Cannula 2 02/05/18 14:00 105 16 118/76 (90) 100 Nasal Cannula 2 02/05/18 13:45 97 16 122/85 (97) 100 Nasal Cannula 2 02/05/18 13:15 96 16 126/92 (103) 100 Nasal Cannula 2 02/05/18 13:00 93 16 126/91 (103) 100 Nasal Cannula 2 02/05/18 12:45 91 17 150/94 (112) 100 Nasal Cannula 2 02/05/18 12:30 93 15 134/93 (107) 100 Nasal Cannula 2 02/05/18 12:15 91 15 142/96 (111) 100 Nasal Cannula 2 02/05/18 12:03 97.6 90 15 156/92 (113) 100 Nasal Cannula 2 I/O 02/05/18 02/05/18 02/05/18 02/06/18 02/06/18 02/06/18 07:00 15:00 23:00 07:00 15:00 23:00 Intake Total 250 ml 100 ml Output Total 600 ml 150 ml Balance -350 ml -50 ml Intake Oral 100 ml Other 250 ml Output Urine Total 600 ml 150 ml Physical Exam GENERAL: Well-nourished, well-developed patient. SKIN: Warm and dry. Groin site soft without bruising or bleeding. HEAD: Normocephalic. EYES: No scleral icterus. No injection or drainage. NECK: Supple, trachea midline. No JVD or lymphadenopathy. CARDIOVASCULAR: Regular rate and rhythm without murmurs, gallops, or rubs. RESPIRATORY: Breath sounds equal bilaterally. No accessory muscle use. GASTROINTESTINAL: Abdomen soft, non-tender, nondistended. EXTREMITIES: No cyanosis, or edema. NEUROLOGICAL: Awake, alert, and oriented x 3. Non-focal. Laboratory Laboratory Tests Test 02/06/18 05:49 Prothrombin Time 11.6 SEC Prothromb Time International Ratio 1.1 RATIO Activated Partial Thromboplast Time 26.0 SEC Assessment and Plan Problem List: (1) Atrial fibrillation ICD Codes: I48.91 - Unspecified atrial fibrillation Plan: Sinus rhythm on telemetry. (2) S/P ablation of atrial fibrillation ICD Codes: Z98.890 - Other specified postprocedural states; Z86.79 - Personal history of other diseases of the circulatory system Plan: Continue Eliquis, discharge home. Follow-up with Dr. Jackson in 3 weeks per my discussion with him. Kathy Covarrubias Feb 06, 2018 08:19
--- NOTE | 2018-02-06 13:09 | EKG ---
Date Performed: 02/06/2018 Time Performed: 05:56:26 PTAGE: 32 years EKG: Sinus rhythm Normal ECG PREVIOUS TRACING : 02/05/2018 08.12 DOCTOR: Neri Parkinson Interpretating Date/Time 02/06/2018 13:05:33
--- NOTE | 2018-02-06 13:29 | EKG ---
Date Performed: 02/05/2018 Time Performed: 08:12:20 PTAGE: 32 years EKG: Sinus rhythm . Septal T wave changes are nonspecific Borderline ECG PREVIOUS TRACING : 01/02/2018 15.08 DOCTOR: Neri Parkinson Interpretating Date/Time 02/06/2018 13:26:59
== END 2018-02-06 10:06 | disposition home or self-care (01) ==
LOC: HCAT 07:26 → HDIC 07:27 → HCIS 15:10 → HCAT 02-06 10:06
PROVIDERS: ATTEND Internal Medicine Interventional Cardiology
DX: I48.91 Unspecified atrial fibrillation (principal); I47.1 Supraventricular tachycardia; I10 Essential (primary) hypertension; Z79.01 Long term (current) use of anticoagulants
CPT/HCPCS: 00537; 80048; 84702; 85002; 85025; 85610; 85730; 86850; 86900; 86901; 93005; 93312; 93320; 93325; 93613; 93623; 93656; 93662; C1730; C1731; C1732; C1759; J1100; J1644; J1956; J2250; J2370; J2405; J2710; J3010; J7040